=== PATIENT | male | born 1975 | race Hispanic/Latino ===

== ENCOUNTER 2019-07-28 11:09 | Emergency (ER) | payer OTHER, SELFPAY ==
[2019-07-28] MEDS ORDERED: Acetaminophen 500 MG TAB ONE (11:32)
[2019-07-29 12:08] LABS: SARS-CoV-2 MS2 Positive; SARS-CoV-2 N Gene Positive; SARS-CoV-2 S Gene Positive; SARS-CoV-2 orf1ab Positive
== END 2019-07-28 11:30 | disposition home or self-care (01) ==
LOC: ERS 11:09
DX: U07.1 COVID-19 (principal); M79.10 Myalgia, unspecified site
CPT/HCPCS: 87635; 99283; U0003